=== PATIENT | male | born 1995 ===

== ENCOUNTER 2021-04-03 16:48 | Inpatient (IN) | payer BC ==
[~2021-04-03] VITALS: Ht 182.9 cm; Wt 101.2 kg
[2021-04-03] MEDS ORDERED: BENZ1TAB10 PO (16:54)
[2021-04-03] MEDS ORDERED: CHLO100T31 PO (16:54)
[2021-04-03] MEDS ORDERED: MELA5TAB40 PO (16:54)
[2021-04-04] MEDS: ZOLPIDEM TARTRATE 10 MG TABLET PO PRN (00:09)
[2021-04-04] MEDS: LORazepam 2 MG TABLET PO PRN ×4 (00:10→15:59)
[2021-04-04 02:23] VITALS: BP 119/84
[2021-04-04] MEDS: HALOPERIDOL 5 MG TABLET PO PRN ×2 (04:55→09:09)
[2021-04-04 08:23] VITALS: BP 143/84
[2021-04-04 08:28] LABS: BASOPHILS % (AUTO) 0.3 % (0.0-2.0); EOSINOPHILS % (AUTO) 1.9 % (1.0-6.0); HEMATOCRIT 43.4 % (41-53); HEMOGLOBIN 14.6 g/dL (13.5-17.5); LYMPHOCYTES # (AUTO) 2.4 K/uL (1.0-4.8); LYMPHOCYTES % (AUTO) 26.7 % (22.0-44.0); MEAN CORPUSCULAR HEMOGLOBIN 31.4 pg (26.0-34.0); MEAN CORPUSCULAR HGB CONC 33.6 G/dL (31.0-37.0); MEAN CORPUSCULAR VOLUME 93 fL (80-100); MONOCYTES # (AUTO) 0.6 K/uL (0.1-1.0); MONOCYTES % (AUTO) 6.3 % (2.0-9.0); NEUTROPHILS # (AUTO) 5.8 K/uL (1.8-7.7); NEUTROPHILS % (AUTO) 64.8 % (40.0-70.0); PLATELET COUNT (AUTO) 422 K/uL (150-450); RED BLOOD CELL COUNT(AUTO) 4.64 MIL/uL (4.50-5.90); RED CELL DISTRIBUTION WIDTH 13.2 % (11.5-14.5)
[2021-04-04 08:43] LABS: HEMOGLOBIN A1C 5.5 % (3.8-5.6)
[2021-04-04 09:00] LABS: ALANINE AMINOTRANSFERASE 75 U/L (12-78); ALBUMIN 3.8 g/dL (3.4-5.0); ALKALINE PHOSPHATASE 74 U/L (46-116); ANION GAP 6 mmol/L (8-16); ASPARTATE AMINOTRANSFERASE 34 U/L (15-37); BILIRUBIN,TOTAL 0.2 mg/dL (0.1-1.0); CALCIUM, TOTAL 8.9 mg/dL (8.8-10.5); CARBON DIOXIDE 23 mmol/L (22-29); CHLORIDE 105 mmol/L (98-107); CHOLESTEROL 215 mg/dL (131-200); CREATININE 0.72 mg/dL (0.60-1.30); FREE T4 (FREE THYROXINE) 0.93 ng/dL (0.76-1.46); GLOMERULAR FILTR. RATE CALC > 60 mL/min (>60); GLUCOSE,RANDOM 103 mg/dL (70-110); HDL CHOLESTEROL 24 mg/dL (40-60); SODIUM SERUM 134 mmol/L (136-145); THYROID STIMULATING HORMONE 1.74 uIU/mL (0.36-3.74); TOTAL PROTEIN, SERUM 7.9 g/dL (6.4-8.2); TRIGLYCERIDES 615 mg/dL (15-150); UREA NITROGEN, BLOOD 15 mg/dL (7-18)
[2021-04-04] MEDS: NICOTINE 21 MG/24 HOUR PATCH TD SCH (10:45)
[2021-04-04] MEDS ORDERED: ONDANSETRON HCL 4 MG TABLET PO PRN (12:15)
[2021-04-04] MEDS ORDERED: ACETAMINOPHEN 325 MG TABLET PO PRN (12:15)
[2021-04-04] MEDS ORDERED: MAGNESIUM HYDROXIDE SUSPENSION 30 ML UDCUP PO PRN (12:15)
[2021-04-04] MEDS ORDERED: ALBUTEROL SULFATE HFA 90 MCG/PUFF 8 GM INHALER IH PRN (12:15)
[2021-04-04] MEDS ORDERED: DOCUSATE SODIUM 100 MG CAPSULE PO PRN (12:15)
[2021-04-04] MEDS ORDERED: MAG HYDROX/AL HYDROX/SIMETH ES 30 ML SUSPENSION UDCUP PO PRN (12:15)
[2021-04-04] MEDS ORDERED: NICOTINE 14 MG/24 HOUR PATCH TD PRN (12:15)
[2021-04-04] MEDS ORDERED: LOPERAMIDE HCL 2 MG CAPSULE PO PRN (12:15)
[2021-04-04] MEDS ORDERED: CloNIDine HCL 0.1 MG TABLET PO PRN (12:15)
[2021-04-04] MEDS ORDERED: PETROLATUM,WHITE 28 GM JELLY TP PRN (12:15)
[2021-04-04] MEDS ORDERED: GuaiFENesin/D-METHORPHAN [SUGAR-FREE] 200-20MG/10 ML SYRUP UDCUP PO PRN (12:15)
[2021-04-04] MEDS: BuPROPion HCL 100 MG SR TABLET PO SCH ×2 (12:21→16:01)
[2021-04-04] MEDS: BENZTROPINE MESYLATE 1 MG TABLET PO SCH ×2 (12:21→16:01)
[2021-04-04] MEDS: DIVALPROEX SODIUM 500 MG DR TABLET PO SCH ×2 (12:21→16:01)
[2021-04-04] MEDS: ChlorproMAZINE HCL 100 MG TABLET PO SCH ×2 (12:21→16:01)
[2021-04-04 12:54] VITALS: BP 143/84
[2021-04-04 16:24] VITALS: BP 135/82
[2021-04-04] MEDS: MELATONIN 5 MG TABLET PO SCH (21:00)
[2021-04-05 01:19] VITALS: BP 124/75
[2021-04-05] MEDS: LORazepam 2 MG TABLET PO PRN ×4 (01:25→20:11)
[2021-04-05] MEDS: ZOLPIDEM TARTRATE 10 MG TABLET PO PRN ×2 (01:38→20:07)
[2021-04-05] MEDS: QUEtiapine FUMARATE 25 MG TABLET PO PRN ×3 (01:38→20:07)
[2021-04-05] MEDS: ChlorproMAZINE HCL 100 MG TABLET PO SCH ×2 (08:09→16:09)
[2021-04-05] MEDS: DIVALPROEX SODIUM 500 MG DR TABLET PO SCH ×2 (08:09→16:09)
[2021-04-05] MEDS: BuPROPion HCL 100 MG SR TABLET PO SCH ×2 (08:09→16:08)
[2021-04-05] MEDS: BENZTROPINE MESYLATE 1 MG TABLET PO SCH ×2 (08:10→16:09)
[2021-04-05 08:59] VITALS: BP 137/83
[2021-04-05] MEDS: NICOTINE 21 MG/24 HOUR PATCH TD SCH (09:53)
[2021-04-05] MEDS: IBUPROFEN 400 MG TABLET PO PRN (12:27)
[2021-04-05 16:18] VITALS: BP 136/83
[2021-04-05 18:32] LABS: APPEARANCE,URINE CLEAR (CLEAR); BILIRUBIN,URINE NEGATIVE (NEGATIVE); GLUCOSE, URINE (UA) NEGATIVE (NEGATIVE); KETONES,URINE NEGATIVE (NEGATIVE); LEUKOCYTE ESTERASE ,URINE NEGATIVE (NEGATIVE); NITRATE,URINE NEGATIVE (NEGATIVE); OCCULT BLOOD,URINE NEGATIVE (NEGATIVE); PROTEIN,URINE NEGATIVE (NEGATIVE); UROBILINOGEN,URINE 0.2 mg/dL (<=1.0)
[2021-04-05 19:02] LABS: AMPHET/METH SCREEN,URINE NEGATIVE (NEGATIVE); BARBITURATE SCREEN, URINE NEGATIVE (NEGATIVE); BENZODIAZEPINES SCREEN,URINE NEGATIVE (NEGATIVE); CANNABINOID SCREEN,URINE NEGATIVE (NEGATIVE); COCAINE SCREEN,URINE NEGATIVE (NEGATIVE); METHADONE SCREEN, URINE NEGATIVE (NEGATIVE); OPIATE SCREEN,URINE NEGATIVE (NEGATIVE)
[2021-04-05 19:09] LABS: PHENCYCLIDINE SCREEN,URINE NEGATIVE (NEGATIVE)
[2021-04-05] MEDS: MELATONIN 5 MG TABLET PO SCH (20:06)
[2021-04-05] MEDS: SIMVASTATIN 20 MG TABLET PO SCH (20:07)
[2021-04-06 04:15] VITALS: BP 127/87
[2021-04-06] MEDS: LORazepam 2 MG TABLET PO PRN ×4 (04:15→20:12)
[2021-04-06] MEDS: QUEtiapine FUMARATE 25 MG TABLET PO PRN ×4 (06:22→20:12)
[2021-04-06] MEDS: ChlorproMAZINE HCL 100 MG TABLET PO SCH ×2 (08:33→16:04)
[2021-04-06] MEDS: NICOTINE 21 MG/24 HOUR PATCH TD SCH (08:34)
[2021-04-06] MEDS: BENZTROPINE MESYLATE 1 MG TABLET PO SCH ×2 (08:34→16:04)
[2021-04-06] MEDS: DIVALPROEX SODIUM 500 MG DR TABLET PO SCH ×2 (08:34→16:04)
[2021-04-06] MEDS: BuPROPion HCL 100 MG SR TABLET PO SCH ×2 (08:34→16:04)
[2021-04-06 10:29] VITALS: BP 131/81
[2021-04-06 16:19] VITALS: BP 110/75
[2021-04-06] MEDS: ZOLPIDEM TARTRATE 10 MG TABLET PO PRN (20:12)
[2021-04-06] MEDS: MELATONIN 5 MG TABLET PO SCH (20:12)
[2021-04-06] MEDS: SIMVASTATIN 20 MG TABLET PO SCH (20:12)
[2021-04-07] MEDS: LORazepam 2 MG TABLET PO PRN ×2 (04:24→17:13)
[2021-04-07 08:31] VITALS: BP 139/83
[2021-04-07] MEDS: NICOTINE 21 MG/24 HOUR PATCH TD SCH (09:00)
[2021-04-07] MEDS ORDERED: HALOPERIDOL LACTATE 5 MG/ML VIAL IM ONE (09:00)
[2021-04-07] MEDS ORDERED: NICOTINE 14 MG/24 HOUR PATCH TD SCH (09:00)
[2021-04-07] MEDS: BACITRACIN 28 GM OINTMENT TP SCH ×2 (09:00→17:00)
[2021-04-07] MEDS ORDERED: LORazepam 2 MG/ML VIAL IM ONE (09:00)
[2021-04-07] MEDS ORDERED: DiphenhydrAMINE HCL 50 MG/ML VIAL IM ONE (09:00)
[2021-04-07] MEDS: BENZTROPINE MESYLATE 1 MG TABLET PO SCH ×2 (09:03→17:13)
[2021-04-07] MEDS: DIVALPROEX SODIUM 500 MG DR TABLET PO SCH ×2 (09:04→17:13)
[2021-04-07] MEDS: BuPROPion HCL 100 MG SR TABLET PO SCH ×2 (09:04→17:13)
[2021-04-07] MEDS: ChlorproMAZINE HCL 100 MG TABLET PO SCH ×2 (09:04→17:13)
[2021-04-07 16:10] VITALS: BP 130/79
[2021-04-07] MEDS: MELATONIN 5 MG TABLET PO SCH (20:47)
[2021-04-07] MEDS: SIMVASTATIN 20 MG TABLET PO SCH (20:48)
[2021-04-08 01:37] VITALS: BP 134/84
[2021-04-08] MEDS: LORazepam 2 MG TABLET PO PRN ×3 (01:44→16:10)
[2021-04-08] MEDS: ZOLPIDEM TARTRATE 10 MG TABLET PO PRN (01:44)
[2021-04-08] MEDS: QUEtiapine FUMARATE 25 MG TABLET PO PRN ×3 (02:05→16:10)
[2021-04-08 08:42] VITALS: BP 139/84
[2021-04-08] MEDS: ChlorproMAZINE HCL 100 MG TABLET PO SCH ×2 (08:42→16:10)
[2021-04-08] MEDS: DIVALPROEX SODIUM 500 MG DR TABLET PO SCH ×2 (08:42→16:10)
[2021-04-08] MEDS: NICOTINE 21 MG/24 HOUR PATCH TD SCH (08:42)
[2021-04-08] MEDS: BENZTROPINE MESYLATE 1 MG TABLET PO SCH ×2 (08:42→16:10)
[2021-04-08] MEDS: BACITRACIN 28 GM OINTMENT TP SCH ×2 (08:42→16:11)
[2021-04-08] MEDS: BuPROPion HCL 100 MG SR TABLET PO SCH ×2 (08:42→16:10)
[2021-04-08] MEDS: IBUPROFEN 400 MG TABLET PO PRN (08:55)
[2021-04-08] MEDS ORDERED: HALOPERIDOL LACTATE 5 MG/ML VIAL ONE (12:08)
[2021-04-08] MEDS ORDERED: LORazepam 2 MG/ML VIAL IM ONE (12:15)
[2021-04-08] MEDS ORDERED: DiphenhydrAMINE HCL 50 MG/ML VIAL IM ONE (12:15)
[2021-04-08] MEDS ORDERED: HALOPERIDOL LACTATE 5 MG/ML VIAL IM ONE (12:15)
[2021-04-08 16:12] VITALS: BP 139/88
[2021-04-08] MEDS: SIMVASTATIN 20 MG TABLET PO SCH (20:58)
[2021-04-08] MEDS: MELATONIN 5 MG TABLET PO SCH (20:58)
[2021-04-09] VITALS: BP 142/86
[2021-04-09] MEDS: LORazepam 2 MG TABLET PO PRN ×3 (00:09→14:07)
[2021-04-09] MEDS: ZOLPIDEM TARTRATE 10 MG TABLET PO PRN ×2 (00:20→21:36)
[2021-04-09] MEDS: ChlorproMAZINE HCL 100 MG TABLET PO SCH ×2 (08:17→16:07)
[2021-04-09] MEDS: BuPROPion HCL 100 MG SR TABLET PO SCH ×2 (08:17→16:07)
[2021-04-09] MEDS: DIVALPROEX SODIUM 500 MG DR TABLET PO SCH ×2 (08:17→16:07)
[2021-04-09] MEDS: BENZTROPINE MESYLATE 1 MG TABLET PO SCH ×2 (08:17→16:07)
[2021-04-09] MEDS: NICOTINE 21 MG/24 HOUR PATCH TD SCH (08:18)
[2021-04-09] MEDS: BACITRACIN 28 GM OINTMENT TP SCH ×2 (08:18→16:07)
[2021-04-09 09:29] VITALS: BP 134/77
[2021-04-09] MEDS: QUEtiapine FUMARATE 25 MG TABLET PO PRN ×2 (10:19→14:20)
[2021-04-09] MEDS: BENZOCAINE/MENTHOL LOZENGE PO PRN (15:02)
[2021-04-09 16:17] VITALS: BP 109/62
[2021-04-09] MEDS: MELATONIN 5 MG TABLET PO SCH (21:36)
[2021-04-09] MEDS: SIMVASTATIN 20 MG TABLET PO SCH (21:36)
[2021-04-10 01:11] VITALS: BP 123/78
[2021-04-10] MEDS ORDERED: LORazepam 2 MG/ML VIAL IM ONE (02:15)
[2021-04-10] MEDS ORDERED: DiphenhydrAMINE HCL 50 MG/ML VIAL IM ONE (02:15)
[2021-04-10] MEDS ORDERED: HALOPERIDOL LACTATE 5 MG/ML VIAL IM ONE (02:15)
[2021-04-10] MEDS: BENZOCAINE/MENTHOL LOZENGE PO PRN (06:58)
[2021-04-10] MEDS: QUEtiapine FUMARATE 25 MG TABLET PO PRN ×2 (08:00→16:04)
[2021-04-10] MEDS: LORazepam 2 MG TABLET PO PRN ×2 (08:00→16:04)
[2021-04-10] MEDS: NICOTINE 21 MG/24 HOUR PATCH TD SCH (09:00)
[2021-04-10] MEDS: DIVALPROEX SODIUM 500 MG DR TABLET PO SCH ×2 (09:12→16:04)
[2021-04-10] MEDS: BENZTROPINE MESYLATE 1 MG TABLET PO SCH ×2 (09:12→16:04)
[2021-04-10] MEDS: ChlorproMAZINE HCL 100 MG TABLET PO SCH ×2 (09:13→16:04)
[2021-04-10] MEDS: BuPROPion HCL 100 MG SR TABLET PO SCH ×2 (09:13→16:04)
[2021-04-10] MEDS: BACITRACIN 28 GM OINTMENT TP SCH ×2 (09:13→16:49)
[2021-04-10 16:36] VITALS: BP 140/97
[2021-04-10] MEDS: SIMVASTATIN 20 MG TABLET PO SCH (21:49)
[2021-04-10] MEDS: MELATONIN 5 MG TABLET PO SCH (21:49)
[2021-04-10] MEDS: ZOLPIDEM TARTRATE 10 MG TABLET PO PRN (21:50)
[2021-04-11 01:54] VITALS: BP 124/78
[2021-04-11] MEDS: QUEtiapine FUMARATE 25 MG TABLET PO PRN ×2 (03:58→11:12)
[2021-04-11] MEDS: LORazepam 2 MG TABLET PO PRN ×2 (03:58→08:26)
[2021-04-11] MEDS: BuPROPion HCL 100 MG SR TABLET PO SCH ×2 (08:25→16:02)
[2021-04-11] MEDS: ChlorproMAZINE HCL 100 MG TABLET PO SCH ×2 (08:25→16:02)
[2021-04-11] MEDS: DIVALPROEX SODIUM 500 MG DR TABLET PO SCH ×2 (08:25→16:02)
[2021-04-11] MEDS: BENZTROPINE MESYLATE 1 MG TABLET PO SCH ×2 (08:25→16:02)
[2021-04-11] MEDS: BACITRACIN 28 GM OINTMENT TP SCH ×2 (08:26→17:09)
[2021-04-11] MEDS: NICOTINE 21 MG/24 HOUR PATCH TD SCH (08:26)
[2021-04-11 09:56] VITALS: BP 120/75
[2021-04-11 16:25] VITALS: BP 118/78
[2021-04-11] MEDS: SIMVASTATIN 20 MG TABLET PO SCH (21:00)
[2021-04-11] MEDS: MELATONIN 5 MG TABLET PO SCH (21:00)
[2021-04-12 05:37] VITALS: BP 126/84
[2021-04-12] MEDS: LORazepam 2 MG TABLET PO PRN (05:41)
[2021-04-12] MEDS: BACITRACIN 28 GM OINTMENT TP SCH (08:07)
[2021-04-12] MEDS: ChlorproMAZINE HCL 100 MG TABLET PO SCH (08:07)
[2021-04-12] MEDS: BuPROPion HCL 100 MG SR TABLET PO SCH (08:07)
[2021-04-12] MEDS: NICOTINE 21 MG/24 HOUR PATCH TD SCH (08:07)
[2021-04-12] MEDS: DIVALPROEX SODIUM 500 MG DR TABLET PO SCH (08:07)
[2021-04-12] MEDS: BENZTROPINE MESYLATE 1 MG TABLET PO SCH (08:07)
[2021-04-12 13:41] VITALS: BP 138/79
[2021-04-12] MEDS ORDERED: DIVA-80 PO (14:28)
[2021-04-12] MEDS ORDERED: BUPR100SR PO (14:28)
== END 2021-04-12 20:32 | disposition home or self-care (01) | DRG 885 ==
LOC: B3A 22:25
PROVIDERS: ADMIT Psychiatry & Neurology Child & Adolescent Psychiatry; ATTEND Psychiatry & Neurology Child & Adolescent Psychiatry
DX: F29 Unspecified psychosis not due to a substance or known physiological condition (principal); E87.1 Hypo-osmolality and hyponatremia; Z68.39 Body mass index [BMI] 39.0-39.9, adult; E78.5 Hyperlipidemia, unspecified; E11.9 Type 2 diabetes mellitus without complications; E66.9 Obesity, unspecified; E78.1 Pure hyperglyceridemia; F10.10 Alcohol abuse, uncomplicated; F17.200 Nicotine dependence, unspecified, uncomplicated; Z89.511 Acquired absence of right leg below knee; Z89.512 Acquired absence of left leg below knee; R00.0 Tachycardia, unspecified; Z59.0 Homelessness
CPT/HCPCS: 80053; 80061; 80307; 81003; 83036; 84439; 84443; 85025; 87081; J1200; J1630; J2060; Q9967